=== PATIENT | female | born 1985 | race Caucasian/White ===

== ENCOUNTER 2020-03-26 10:41 | Emergency (ER) | payer OTHER, SELFPAY ==
[~2020-03-26] VITALS: Ht 165.1 cm; Wt 74.8 kg
[2020-03-26 10:46] VITALS: BP 127/72
--- NOTE | 2020-03-26 10:55 | NUR ---
Magali moscoso in [facility] - 03/26/20 at 1056 by ABHISHEK BIBA TAKEN TO BED 10
--- NOTE | 2020-03-26 11:18 | NUR ---
PT C/O FEVER X 2 DAYS A/W BODY ACHES, SOB, FATIGUE, AND HALLUCINATIONS SINCE YESTERDAY. LAST TOOK TYLENOL AT 0800 THIS MORNING MEDHX: DENIES Addendum: 03/26/20 at 1118 by JUANITO PT C/O FEVER X 2 DAYS A/W BODY ACHES, SOB, FATIGUE SINCE YESTERDAY. LAST TOOK TYLENOL AT 0800 THIS MORNING. STATES WENT TO A WAREHOUSE AND THEN DEVELOPED SYMPTOMS. CHEST PAIN TO BACK WITH DEEP INSPIRATION ONLY. DENIES SI/HI. STATES MOTHER TOLD PT THAT PT IS HALLUCINATION BUT PT DENIES CONFUSION/HALLUCINATIONS. VSS ON BEDSIDE MONITOR. MEDHX: DENIES
--- NOTE | 2020-03-26 12:07 | NUR ---
Dr. Dinh evaluating pt at bedside
[2020-03-26] MEDS ORDERED: KETOROLAC 30 MG/ML VIAL IM ONE (12:10)
[2020-03-26] MEDS ORDERED: ACETAMINOPHEN EXTRA STRENGTH 500 MG TAB PO ONE (12:10)
--- NOTE | 2020-03-26 12:35 | NUR ---
COVID-19 SWAB COLLECTED FROM PT
--- NOTE | 2020-03-26 12:36 | NUR ---
PT REFUSED TYLENOL, DR MOREL MADE AWARE
[2020-03-26 13:22] VITALS: BP 109/71
--- NOTE | 2020-03-26 13:22 | NUR ---
Patient discharged with v/s stable. Written and verbal after care instructions given and explained. Patient alert, oriented and verbalized understanding of instructions. Ambulatory with steady gait. All questions addressed prior to discharge. ID band removed. Patient advised to follow up with PMD. Rx of Albuterol, Tessalon Perles, Tylenol and Motrin given. Patient educated on indication of medication including possible reaction and side effects. Opportunity to ask questions provided and answered.
== END 2020-03-26 13:22 | disposition home or self-care (01) ==
LOC: MED 10:41 → EEVIPCON 10:41 → MED 13:22
DX: U07.1 COVID-19 (principal)
CPT/HCPCS: 71045; 96372; 99284; J1885; Q0163; U0003

== ENCOUNTER 2022-01-25 15:08 | Emergency (ER) | payer OTHER ==
[~2022-01-25] VITALS: Ht 165.1 cm; Wt 72.6 kg
[2022-01-25 15:20] VITALS: BP 113/78
--- NOTE | 2022-01-25 15:41 | NUR ---
36 Y/O FEMALE BIB SELF C/O FEVER, WILDER, LOWER BACK PAIN /, BODY PAIN , N/D X YESTERDAY. DENIES N/V/D TODAY.ORAL TEMP 100.9 AT TRIAGE, 98.5 AT BEDSIDE ORAL. PT TOOK MOTRIN 800 MG 3 HOURS AGO. NOTED WITH LARGE LUMP IN THE LOWER BACK. PMH: ARTHRITIS, SCIATICA
--- NOTE | 2022-01-25 15:52 | NUR ---
DR HERNANDEZ AT BEDSIDE FOR EVAL
[2022-01-25] MEDS ORDERED: ONDANSETRON 4 MG/2 ML VIAL IVP ONE (15:55)
[2022-01-25] MEDS ORDERED: ACETAMINOPHEN EXTRA STRENGTH 500 MG TAB PO ONE (15:55)
[2022-01-25] MEDS ORDERED: NACL 0.9% 1,000 ML IV ONE (15:55)
[2022-01-25] MEDS ORDERED: MORPHINE SULFATE 4 MG/ML SYR IVP ONE (15:55)
[2022-01-25] MEDS ORDERED: fentaNYL citrate 0.05 MG/ML VIAL IVP ONE (16:40)
[2022-01-25 16:51] LABS: BASOPHILS % (AUTO) 0.2 % (0.0-2.0); EOSINOPHILS % (AUTO) 0.8 % (0.0-4.0); HEMATOCRIT 33.4 % (36-48); HEMOGLOBIN 10.6 g/dL (12.0-16.0); LYMPHOCYTES # (AUTO) 0.7 K/uL (2.5-16.5); MEAN CORPUSCULAR HEMOGLOBIN 25 pg (27-31); MEAN CORPUSCULAR HGB CONC 32 g/dL (33-37); MEAN CORPUSCULAR VOLUME 78.8 fL (80-94); MONOCYTES # (AUTO) 0.4 K/uL (0.8-1.0); MONOCYTES % (AUTO) 8.5 % (1.7-9.3); NEUTROPHILS % (AUTO) 77.5 % (42.2-75.2); PLATELET COUNT (AUTO) 232 K/uL (140-450); RED BLOOD CELL COUNT(AUTO) 4.23 MIL/uL (4.20-5.40); RED CELL DISTRIBUTION WIDTH 16.7 % (11.6-13.7); WHITE BLOOD COUNT (AUTO) 5.1 K/uL (4.8-10.8)
--- NOTE | 2022-01-25 16:51 | NUR ---
PT TAKEN TO CT VIA GRETCHEN
[2022-01-25 17:09] LABS: ALBUMIN 3.6 g/dL (3.4-5.0); ANION GAP 13.2 (8-16); CARBON DIOXIDE 24.1 mmol/L (21-32); CREATININE 0.7 mg/dL (0.6-1.3); POTASSIUM 3.3 mmol/L (3.5-5.1); TOTAL BILIRUBIN 0.6 mg/dL (0.0-1.0)
[2022-01-25 17:26] VITALS: BP 92/51
--- NOTE | 2022-01-25 17:57 | NUR ---
DR HERNANDEZ AT BEDSIDE
[2022-01-25] MEDS ORDERED: HYDR-5191 PO ×2 (18:04→20:36)
[2022-01-25] MEDS ORDERED: ONDA-188 SL ×2 (18:04→20:36)
[2022-01-25] MEDS ORDERED: IBUP-2213 PO ×2 (18:04→20:36)
--- NOTE | 2022-01-25 18:46 | NUR ---
Patient discharged with v/s stable. Written and verbal after care instructions given and explained. Patient alert, oriented and verbalized understanding of instructions. Ambulatory with steady gait. All questions addressed prior to discharge. ID band removed. Patient advised to follow up with PMD. Rx of MOTRIN, ZOFRAN, NORCO given. Patient educated on indication of medication including possible reaction and side effects. Opportunity to ask questions provided and answered.
== END 2022-01-25 18:46 | disposition home or self-care (01) ==
LOC: MED 15:08
DX: B34.9 Viral infection, unspecified (principal); Z20.822 Contact with and (suspected) exposure to COVID-19; G89.29 Other chronic pain
CPT/HCPCS: 36415; 74176; 80053; 81002; 81025; 83605; 83690; 85025; 87426; 87804; 96361; 96374; 96375; 99284; J2270; J2405; J3010; J7030

== ENCOUNTER 2022-03-10 15:37 | Emergency (ER) | payer OTHER ==
[~2022-03-10] VITALS: Ht 160 cm; Wt 61.2 kg
[~2022-03-10 15:37] MED LIST: HYDR-5191 PO; IBUP-2213 PO; ONDA-188 SL
[2022-03-10 15:38] VITALS: BP 130/79
--- NOTE | 2022-03-10 15:39 | NUR ---
WILVER RHOADES ALS VIA GURNEY TO BED 03.
[2022-03-10] MEDS ORDERED: KETOROLAC 30 MG/ML VIAL IVP ONE (15:55)
[2022-03-10] MEDS ORDERED: NACL 0.9% 1,000 ML IV ONE (15:55)
[2022-03-10] MEDS ORDERED: METOCLOPRAMIDE 10 MG/2 ML INJ VIAL IVP ONE (15:55)
--- NOTE | 2022-03-10 15:59 | NUR ---
BIBA FROM HOME C/O LOWER ABD PAIN ONSET TODAY. STATES [place] DENIES DIARRHEA. NO FEVER, DENIES TRAUMA,DENIES , AAOX3, AMBULATORY, CRYING AND STATING 10/10 PAIN. VITALS STABLE. ON INTERNAL AUDIT CONSULTANT. BLOOD AND URINE COLLECTED.
[2022-03-10] MEDS ORDERED: MORPHINE SULFATE 4 MG/ML SYR IVP ONE (16:00)
[2022-03-10 16:20] LABS: BASOPHILS # (AUTO) 0.2 K/uL (0.00-0.22); BASOPHILS % (AUTO) 1.9 % (0.0-2.0); EOSINOPHILS # (AUTO) 0.1 K/uL (0-0.4); EOSINOPHILS % (AUTO) 1.6 % (0.0-4.0); HEMATOCRIT 32.5 % (36-48); HEMOGLOBIN 10.4 g/dL (12.0-16.0); LYMPHOCYTES # (AUTO) 1.2 K/uL (2.5-16.5); LYMPHOCYTES % (AUTO) 14.2 % (20.5-51.1); MEAN CORPUSCULAR HEMOGLOBIN 25 pg (27-31); MEAN CORPUSCULAR HGB CONC 32 g/dL (33-37); MEAN CORPUSCULAR VOLUME 78.3 fL (80-94); MONOCYTES # (AUTO) 0.6 K/uL (0.8-1.0); MONOCYTES % (AUTO) 7.5 % (1.7-9.3); NEUTROPHILS # (AUTO) 6.1 K/uL (1.8-7.7); NEUTROPHILS % (AUTO) 74.8 % (42.2-75.2); PLATELET COUNT (AUTO) 331 K/uL (140-450); RED BLOOD CELL COUNT(AUTO) 4.15 MIL/uL (4.20-5.40); RED CELL DISTRIBUTION WIDTH 16.3 % (11.6-13.7); WHITE BLOOD COUNT (AUTO) 8.2 K/uL (4.8-10.8)
[2022-03-10 16:37] LABS: APPEARANCE,URINE CLEAR (CLEAR); BILIRUBIN,URINE NEGATIVE (NEGATIVE); BLOOD, URINE TRACE-I (NEGATIVE); COLOR,URINE YELLOW (YELLOW); LEUKOCYTE ESTERASE ,URINE NEGATIVE (NEGATIVE); NITRITE, URINE NEGATIVE (NEGATIVE); PH,URINE >=9.0 (5.0-9.0); UGLUCOSE NEGATIVE (NEGATIVE)
[2022-03-10 16:41] LABS: ANION GAP 14.3 (8-16); CARBON DIOXIDE 18.4 mmol/L (21-32); CREATININE 0.8 mg/dL (0.6-1.3); POTASSIUM 3.7 mmol/L (3.5-5.1)
[2022-03-10 16:57] LABS: ALBUMIN 4.2 g/dL (3.4-5.0); TOTAL BILIRUBIN 0.4 mg/dL (0.0-1.0)
[2022-03-10 17:08] LABS: RBC,URINE 0-5 /HPF (0-5); WBC,URINE NONE SEEN /HPF (0-5)
[2022-03-10 18:00] VITALS: BP 128/65
[2022-03-10] MEDS ORDERED: IBUP-2213 PO (18:00)
== END 2022-03-10 18:00 | disposition home or self-care (01) ==
LOC: MED 15:37
DX: N94.6 Dysmenorrhea, unspecified (principal); R11.2 Nausea with vomiting, unspecified; Z79.1 Long term (current) use of non-steroidal anti-inflammatories (NSAID); Z79.899 Other long term (current) drug therapy; Z79.891 Long term (current) use of opiate analgesic; Z88.6 Allergy status to analgesic agent
CPT/HCPCS: 36415; 76830; 80053; 81001; 81025; 83605; 83690; 85025; 96361; 96374; 96375; 99284; J1885; J2270; J2765; J7030; Q0092

== ENCOUNTER 2023-02-09 14:59 | Emergency (ER) | payer OTHER ==
[~2023-02-09] VITALS: Ht 162.6 cm; Wt 81.6 kg
[2023-02-09 15:34] VITALS: BP 143/81
--- NOTE | 2023-02-09 15:34 | NUR ---
PT CRYING AND YELLING WHILE IN AMBULANCE STRETCHER GOING TO BED, YELLING FOR PAIN MEDS
[2023-02-09 16:19] LABS: BASOPHILS % (AUTO) 0.3 % (0.0-2.0); EOSINOPHILS # (AUTO) 0.2 K/uL (0-0.4); EOSINOPHILS % (AUTO) 1.9 % (0.0-4.0); HEMATOCRIT 28.9 % (36-48); HEMOGLOBIN 9.4 g/dL (12.0-16.0); LYMPHOCYTES # (AUTO) 1.6 K/uL (2.5-16.5); LYMPHOCYTES % (AUTO) 15.5 % (20.5-51.1); MEAN CORPUSCULAR HEMOGLOBIN 23 pg (27-31); MEAN CORPUSCULAR HGB CONC 32 g/dL (33-37); MEAN CORPUSCULAR VOLUME 72.1 fL (80-94); MONOCYTES # (AUTO) 0.7 K/uL (0.8-1.0); MONOCYTES % (AUTO) 7.3 % (1.7-9.3); NEUTROPHILS # (AUTO) 7.6 K/uL (1.8-7.7); PLATELET COUNT (AUTO) 336 K/uL (140-450); RED BLOOD CELL COUNT(AUTO) 4.02 MIL/uL (4.20-5.40); RED CELL DISTRIBUTION WIDTH 17.1 % (11.6-13.7); WHITE BLOOD COUNT (AUTO) 10.1 K/uL (4.8-10.8)
--- NOTE | 2023-02-09 16:30 | NUR ---
PT AMBULATED TO BR TO GIVE URINE SAMPLE, STEADY GAIT
[2023-02-09 16:33] LABS: ALBUMIN 3.6 g/dL (3.4-5.0); ANION GAP 14.5 (8-16); CARBON DIOXIDE 22.4 mmol/L (21-32); CREATININE 0.7 mg/dL (0.6-1.3); POTASSIUM 3.9 mmol/L (3.5-5.1); TOTAL BILIRUBIN 0.2 mg/dL (0.0-1.0)
[2023-02-09] MEDS ORDERED: ONDANSETRON 4 MG/2 ML VIAL IVP ONE (16:35)
[2023-02-09] MEDS ORDERED: MORPHINE SULFATE 4 MG/ML SYR IVP ONE (16:35)
[2023-02-09] MEDS ORDERED: KETOROLAC 15 MG/ML VIAL IVP ONE (16:35)
[2023-02-09 16:38] LABS: APPEARANCE,URINE CLEAR (CLEAR); BILIRUBIN,URINE NEGATIVE (NEGATIVE); BLOOD, URINE 3+ (NEGATIVE); COLOR,URINE YELLOW (YELLOW); LEUKOCYTE ESTERASE ,URINE NEGATIVE (NEGATIVE); NITRITE, URINE NEGATIVE (NEGATIVE); PH,URINE 6.5 (5.0-9.0); UGLUCOSE NEGATIVE (NEGATIVE)
--- NOTE | 2023-02-09 17:00 | NUR ---
PT SAID SHE WOULD LEAVE IF MOM IS NOT ALLOWED TO COME IN. EXPLAINED TO PT TO WAIT A FEW MINUTES FOR SOME PATIENT SITUATION IN THE DEPARTMENT TO RESOLVE. PT VERBALIZED UNDERSTANDING
[2023-02-09 17:12] LABS: RBC,URINE 11-20 (MOD) /HPF (0-5)
[2023-02-09] MEDS ORDERED: IBUP-2213 PO (17:38)
[2023-02-09 17:59] VITALS: BP 108/64
== END 2023-02-09 18:07 | disposition home or self-care (01) ==
LOC: MED 14:59
DX: N94.6 Dysmenorrhea, unspecified (principal); Z79.899 Other long term (current) drug therapy
CPT/HCPCS: 36415; 76856; 80053; 81001; 81025; 83690; 85025; 93976; 96374; 96375; 99285; J1885; J2270; J2405; Q0092